=== PATIENT | male | born 1985 | race Caucasian/White ===

== ENCOUNTER 2017-06-05 22:44 | Emergency (ER) | payer OTHER ==
[2017-06-05 22:50] VITALS: BP 135/90
[2017-06-06] MEDS ORDERED: ULTRAM PO ONE (01:32)
[2017-06-06] MEDS ORDERED: TORADOL IM ONE (01:32)
--- NOTE | 2017-06-06 02:18 | XRay Report ---
FINAL REPORT EXAM: XR KNEE 3V RT HISTORY: rt. knee pain TECHNIQUE: Three views of the right knee were obtained. FINDINGS: There are no skeletal or soft tissue abnormalities. IMPRESSION: Within normal limits.
--- NOTE | 2017-06-06 02:53 | Emergency Department Report ---
ED Lower Extremity HPI - General Chief Complaint: Extremity Injury, Lower Stated Complaint: KNEE PAIN Time Seen by Provider: 06/06/17 01:26 Source: patient Mode of arrival: Ambulatory Limitations: Language Barrier - History of Present Illness Initial Comments: 31-year-old male with no significant past medical history present hospital complaining of right knee pain 8 days. He denies trauma. Similar symptoms 2 months ago that resolved spontaneously. Pain is rated 7/10 and intensity, constant, aching, worse with movement and palpation. Pain is greatest in the medial portion of the knee joint. No reports of fever, warmth, or erythema. No other joint pain or swelling - Related Data Previous Rx's Medication Instructions Recorded Last Taken Type Ibuprofen [Motrin] 800 mg PO Q8HR PRN #30 tablet 06/06/17 Unknown Rx traMADol [Ultram 50 MG tab] 50 mg PO Q6HR PRN #20 tablet 06/06/17 Unknown Rx Allergies Allergy/AdvReac Type Severity Reaction Status Date / Time No Known Allergies Allergy Unverified 06/05/17 22:47 ED Review of Systems ROS: Stated complaint: KNEE PAIN Other details as noted in HPI Comment: All other systems reviewed and negative Other: Constitutional: No fevers chills Eyes: No eye pain visual changes ENT: No ear pain or throat pain Neck: Denies pain Respiratory: Denies cough wheezing shortness of breath Cardiovascular: Denies chest pain, palpitations, syncope GI: Denies abdominal pain, nausea, vomiting, diarrhea : Denies dysuria Musculoskeletal: As per HPI Skin: Denies rash, lesions, erythema Neurologic: Denies headache, numbness, weakness Psychiatric: Denies suicidal ideation, hallucinations Hematological/lymphatic: Denies easy bruising, lymphadenopathy ED Past Medical Hx - Past Medical History Previous Medical History?: No - Surgical History Past Surgical History?: No - Social History Smoking Status: Never Smoker Substance Use Type: Alcohol - Medications Home Medications: Home Medications Medication Instructions Recorded Confirmed Last Taken Type Ibuprofen [Motrin] 800 mg PO Q8HR PRN #30 tablet 06/06/17 Unknown Rx traMADol [Ultram 50 MG tab] 50 mg PO Q6HR PRN #20 tablet 06/06/17 Unknown Rx ED Physical Exam - General Limitations: Language Barrier - Other Other exam information: General: No limitations, patient is alert in no acute distress Head exam: Atraumatic, normocephalic Eyes exam: Normal appearance ENT: Moist mucous membrane, normal oropharynx Neck exam: Normal inspection, full range of motion, no meningismus nontender Respiratory exam: Clear to auscultation bilateral, no wheezes, rales, crackles Cardiovascular: Normal rate and rhythm, normal heart sounds Abdomen: Soft, nondistended, and nontender, with normal bowel sounds, no rebound, or guarding Extremity: Full range of motion, normal inspection, no erythema or warmth. Tenderness is maximal at the medial knee joint. Patient able to bear weight Back: Normal Inspection, full range of motion, no tenderness Neurologic: Alert, oriented x3, cranial nerves intact, no motor or sensory deficit Psychiatric: normal affect, normal mood Skin: Warm, dry, intact ED Course Vital Signs 06/05/17 22:47 Temperature 97.8 F Pulse Rate 58 L Respiratory 18 Rate Blood Pressure 135/90 O2 Sat by Pulse 97 Oximetry - Reevaluation(s) Reevaluation #1: 06/06/17 02:50 Pain improved with Toradol and tramadol in the ED ED Lower Extremity MDM - Radiology Data Radiology results: report reviewed (right knee x-ray: Normal) - Medical Decision Making Plan to discharge patient home with pain medications and anti-inflammatory. Outpatient follow-up with PMD and orthopedics will be encouraged - Differential Diagnosis fracture, contusion, strain, arthritis Critical Care Time: No Critical care attestation.: If time is entered above; I have spent that time in minutes in the direct care of this critically ill patient, excluding procedure time. ED Disposition Clinical Impression: Knee pain, right Disposition: [id number] TO HOME OR SELFCARE Is pt being admited?: No Does the pt Need Aspirin: No Condition: Stable Instructions: Knee Pain (ED) Additional Instructions: Take the medication as prescribed. Return is symptoms worsen. Follow up with primary care doctor and orthopedic doctor for further evaluation and treatment. [facility] la medicacin segn lo prescrito. El regreso es sntomas empeoran. Lance un seguimiento con el mdico de atencin primaria y el mdico ortopedista para leida evaluacin y tratamiento posterior. Prescriptions: Ibuprofen [Motrin] 800 mg PO Q8HR PRN #30 tablet PRN Reason: Pain traMADol [Ultram 50 MG tab] 50 mg PO Q6HR PRN #20 tablet PRN Reason: Pain Referrals: [facility] [Provider Group] - 3-5 Days KHUSHBU RODRIGUEZ MD [Staff Physician] - 3-5 Days Print Language: SWEDISH
== END 2017-06-06 03:12 | disposition home or self-care (01) ==
LOC: ED 22:44
DX: M25.561 Pain in right knee (principal)
CPT/HCPCS: 73562; 96372; 99283; J1885